=== PATIENT | male | born 1990 | race Caucasian/White ===

== ENCOUNTER 2024-10-02 22:14 | Day surgery (SDC) | payer OTHER, SELFPAY ==
[2024-10-02] VITALS (8 sets, daily range): BP systolic 107–141; BP diastolic 75–96; BMI 36.6; BMI 32.3
--- NOTE | 2024-10-02 15:30 | ED.GENMED ---
ED Provider Triage
<Rica Adam PA-C - Last Filed: 10/02/24 15:34>
-
Patient seen by provider in Triage?: Seen in Triage
Attestation: A medical screening examination has been initiated by a qualified medical provider. Based on the assessment performed at this time, it has been determined that an emergent medical condition may exist and the patient has been informed
that further medical evaluation and possible additional diagnostic testing may be needed.
HPI: 34yoM here with lower abd pain radiating to back x 2 hours. Started 30 minutes after drinking a milkshake. Feels worse than his typical Crohn's flare. Not currently on medications for his Crohn's. No fevers. No v/d. No prior abdominal surgeries.
GENERAL: Alert , in no apparent distress
EYE: No visual abnormalities.
NECK: Trachea midline
ENT: No visible abnormalities.
LUNGS: No acute respiratory distress
NEUROLOGICAL: Alert and oriented
SKIN: Skin intact. No visible changes.
MUSCULOSKELETAL: Moving extremities normally
PSYCH: Normal and appropriate interaction.
This is a medical evaluation conducted in person to initiate diagnostic evaluation and provide initial therapeutics. Please see further documentation by the treating clinician.
Abdominal labs, lactate, and CT abdomen ordered.
History of Present Illness
<Rica Adam PA-C - Last Filed: 10/02/24 15:34>
General
Chief Complaint: Abdominal Pain
Time Seen by Provider: 10/02/24 17:15
<Court Martini DO - Last Filed: 10/02/24 21:23>
History of Present Illness
History of Present Illness:
34-year-old male with history of Crohn's disease presenting for lower abdominal discomfort. Patient reports that earlier today he had a milkshake, and then started to have lower abdominal pain and nausea. Reports the pain is overall improved,
however the nausea is still present. He reports that his last Crohn's flare was about a year ago, is not currently on any medications for his Crohn's disease. Denies any changes in stool. Denies fever. He has not vomited. Denies any history of
abdominal surgeries. Denies additional acute medical complaints.
Phy Exam
<Court Martini DO - Last Filed: 10/02/24 21:23>
Physical Exam
Physical Exam:
General: Well-appearing, no clinical signs of dehydration, nontoxic and in no acute distress
HEENT: protecting airway
Neck: appears supple
CV: Normal heart rate, regular rhythm
Resp: No accessory muscle use
Abd: Soft and non-distended, no tenderness to palpation
Extremities: No deformities, no swelling, no erythema, pulses and sensation intact
Neuro: alert, no focal neurologic deficit
: deferred
Rectal: deferred
Psych: Normal affect
Skin: Intact
Course
<Rica Adam PA-C - Last Filed: 10/02/24 15:34>
Orders/Labs/Results
Orders:
Orders
10/02/24 15:33
CT Abd/pelvis W Iv Cont Urgent
Comment:
Reason For Exam: Lower abd pain, hx of Crohn's
10/02/24 15:39
Complete Blood Count/With Diff Urgent
Comprehensive Metabolic Panel Urgent
Lactic Acid Urgent
Lipase Urgent
10/02/24 17:36
Ondansetron Injectable [Zofran] 4 mg .ROUTE .[facility] ONE
10/02/24 17:42
Ondansetron Injectable [Zofran] 4 mg IV NOW STA
10/02/24 19:39
Abdominal Ltd US [US Abdomen Limited] Urgent
Comment:
Reason For Exam: abnormal CT, abdominal pain, elevated LFTs
Abnormal Lab Results
10/02/24
15:39
Absolute Neuts (auto) 6.8 H 10^3/uL
(1.4-6.5)
Absolute Monos (auto) 0.8 H 10^3/uL
(0.1-0.6)
Lymphocytes % 15.5 L %
(20.5-51.1)
Glucose 153 H mg/dl
(70-99)
Lactic Acid 2.2 H mmol/L
(0.7-2.0)
AST 126 H U/L
(17-59)
ALT 105 H U/L
(0-50)
Albumin 5.2 H g/dl
(3.5-5.0)
10/02/24 15:39
10/02/24 15:39
Vital Signs
Initial and Last Documented VS:
Initial Vital Signs
Temp Pulse Resp BP Pulse Ox
98.2 F 79 20 141/96 99
10/02/24 15:24 10/02/24 15:24 10/02/24 15:24 10/02/24 15:24 10/02/24 15:24
Last Documented Vital Signs
Temp Pulse Resp BP Pulse Ox
97.9 F 74 20 107/77 96
10/02/24 19:10 10/02/24 19:10 10/02/24 15:24 10/02/24 19:00 10/02/24 19:00
<Court Martini, - Last Filed: 10/02/24 21:23>
Orders/Labs/Results
Orders:
Orders
10/02/24 15:33
CT Abd/pelvis W Iv Cont Urgent
Comment:
Reason For Exam: Lower abd pain, hx of Crohn's
10/02/24 15:39
Complete Blood Count/With Diff Urgent
Comprehensive Metabolic Panel Urgent
Lactic Acid Urgent
Lipase Urgent
10/02/24 17:36
Ondansetron Injectable [Zofran] 4 mg .ROUTE .[facility]
10/02/24 17:42
Ondansetron Injectable [Zofran] 4 mg IV NOW STA
10/02/24 19:39
Abdominal Ltd US [US Abdomen Limited] Urgent
Comment:
Reason For Exam: abnormal CT, abdominal pain, elevated LFTs
Abnormal Lab Results
10/02/24
15:39
Absolute Neuts (auto) 6.8 H 10^3/uL
(1.4-6.5)
Absolute Monos (auto) 0.8 H 10^3/uL
(0.1-0.6)
Lymphocytes % 15.5 L %
(20.5-51.1)
Glucose 153 H mg/dl
(70-99)
Lactic Acid 2.2 H mmol/L
(0.7-2.0)
AST 126 H U/L
(17-59)
ALT 105 H U/L
(0-50)
Albumin 5.2 H g/dl
(3.5-5.0)
10/02/24 15:39
10/02/24 15:39
Vital Signs
Initial and Last Documented VS:
Initial Vital Signs
Temp Pulse Resp BP Pulse Ox
98.2 F 79 20 141/96 99
10/02/24 15:24 10/02/24 15:24 10/02/24 15:24 10/02/24 15:24 10/02/24 15:24
Last Documented Vital Signs
Temp Pulse Resp BP Pulse Ox
97.9 F 74 20 107/77 96
10/02/24 19:10 10/02/24 19:10 10/02/24 15:24 10/02/24 19:00 10/02/24 19:00
<Coutr Martini, DO - Last Filed: 10/02/24 21:23>
MDM/Problems Addressed
MDM/Problems Addressed:
34-year-old male with history of Crohn's disease presenting for lower abdominal discomfort after eating a milkshake. Vital signs normal.
On exam, patient is well-appearing, no acute distress or discomfort. Reports that his pain has currently improved. No palpable tenderness on exam. He notes that his main issue right now is nausea. Labs had been obtained prior to my assessment,
transaminitis. No focal right upper quadrant pain, normal T. bili. He reports history of fatty liver disease, lower suspicion for acute liver process. Plan for CT abdominal imaging to ensure no complicating Crohn's flare. Will administer Zofran
for patient's symptoms.
19:40 -CAT scan shows inflammation to the gallbladder suggesting potential for acute cholecystitis. Given transaminitis, will proceed further with right upper quadrant ultrasound imaging
21:20 -ultrasound again showing concern for acute cholecystitis. Discussed with surgery on-call, recommends admission, n.p.o., will evaluate for OR management tomorrow. No antibiotics at this time.
<Court Martini DO - Last Filed: 10/02/24 21:23>
*Critical Care Note
Total Time (30-74mins, 75-104mins- exclusive of procedures): Not Applicable
ED Attending Note
<Rica Adam PA-C - Last Filed: 10/02/24 15:34>
-
Portions of this chart may have been created with voice recognition software.� Occasional wrong word or��sound alike� substitutions may have occurred due to the inherent limitations of voice recognition software.
Discharge Plan
Departure
Referrals:
NONE,* [Family Provider] -
Interventions
Interventions:
*General Assessment Last Done: 10/02/24 15:24
*Neglect/Abuse Screening Last Done: 10/02/24 17:21
ED- Fall Risk Assessment Last Done: 10/02/24 17:21
*ED COVID-19 Vaccine History Last Done: 10/02/24 17:21
HX-Remyar-Qezxdlufvf Assessment Last Done: 10/02/24 19:10
Discharge Date and Time
Print Language: BULGARIAN
[2024-10-02 15:53] LABS: % Basophils 0.3 % (0-2); % Eosinophils 1.5 % (0-6); % Immature Granulocytes 0.2 % (0-0.5); % Lymphocytes 15.5 % (20.5-51.1); % Monocytes 8.8 % (1.7-9.3); % Neutrophils 73.7 % (42.2-75.2); Absolute Eosinophils 0.1 10^3/uL (0-0.7); Absolute Lymphocytes 1.4 10^3/uL (1.2-3.4); Absolute Monocytes 0.8 10^3/uL (0.1-0.6); Absolute Neutrophils 6.8 10^3/uL (1.4-6.5); Hemoglobin 15.8 g/dL (13.0-18.0); Mean Corp Hgb Conc. 35.1 g/dL (33.0-37.0); Mean Corpuscular Hgb 28.7 pg (27.0-31.0); Mean Corpuscular Volume 81.8 fL (80.0-94.0); Mean Platelet Volume 8.6 fL (7.4-10.4); Nucleated Red Blood Cells % 0 % (-); Platelet Count 269 10^3/uL (130-400); Red Cell Dist. Width 12.3 % (11.5-14.5); White Blood Cell Count 9.2 10^3/uL (4.8-10.8)
[2024-10-02 16:02] LABS: Lactic Acid 2.2 mmol/L (0.7-2.0)
[2024-10-02 16:10] LABS: ALT (SGPT) 105 U/L (0-50); AST (SGOT) 126 U/L (17-59); Albumin 5.2 g/dl (3.5-5.0); Alkaline Phosphatase 55 U/L (38-126); Blood Urea Nitrogen 17 mg/dl (9-20); Calcium 10.2 mg/dl (8.4-10.2); Carbon Dioxide 23 mmol/L (22-30); Chloride 101 mmol/L (98-107); Glucose 153 mg/dl (70-99); Potassium 3.9 mmol/L (3.5-5.1); Sodium 138 mmol/L (135-145); Total Bilirubin 0.8 mg/dl (0.2-1.3); Total Protein 7.6 g/dl (6.3-8.2); eGFR > 60.00
[2024-10-02 16:31] LABS: Lipase 65 U/L (23-300)
[2024-10-02] MEDS: ZOFRAN 4 MG IV ×2 (17:46→23:45)
--- NOTE | 2024-10-02 22:18 | HPS.HSE ---
Family Physician
-
Family Physician: * NONE
Chief Complaint
-
abd pain after drinking milkshake
History of Present Illness
34yoM past med hx of crohns ( in remission) and dermatitis (on rinvoq/opzelura) here with complaints of pain starting in lower abd pain radiating to back x 2 hours. Then with palpation pain was located in RUQ under rib cage. Pain started 30 minutes
after drinking a milkshake. Feels worse than his typical Crohn's flare. Not currently on medications for his Crohn's. No fevers. No v/d. No prior abdominal surgeries.
ct abd: IMPRESSION: Subtle stranding of the fat surrounding the gallbladder, with no evidence for calcified gallstones. This finding suggests the possibility of acute cholecystitis, and please correlate clinically. No evidence for biliary ductal
dilation.
The appendix appears normal. No evidence for bowel obstruction. No evidence for free intraperitoneal air.
US abd: IMPRESSION: Trace amount of sludge within the gallbladder lumen.
7 mm gallbladder polyp. No further imaging follow-up is advised, based on recommendations from the Society of radiologists in ultrasound.
The bladder wall is thickened with a trace amount of pericholecystic fluid. Findings on earlier CT raise concern for acute cholecystitis, and please correlate clinically. No evidence for biliary ductal dilation.
Fatty infiltration of the liver.
Medical History
Past Medical History
Past Medical History: Reports GERD (takes no meds routinely) and Other (crohns (remission), dermatitis)
Past Surgical History: Reports Orthopedic (ORIF left olecranon 2011)
Social History
Tobacco: Non-smoker
Alcohol: Occasional
Drug: None
Personal: Single
Living: Alone
Employment: Employed
Family History
Family History: Not pertinent
Allergies / Home Medications
Allergies reflects when Allergies were last updated in [facility].
Home Medications with original date entered in [facility]
Allergy/Medication List:
Allergies
Allergy/AdvReac Type Severity Reaction Status Date / Time
bees, pineapple, peanuts Allergy facial Uncoded 10/02/24 15:24
swelling
Home Medications
albuterol sulfate 90 mcg/actuation aerosol inhaler 2 puff inhalation R Q6HPRN PRN sob 10/02/24
ruxolitinib 1.5 % topical cream (Opzelura) 1 applic topical BIDPRN PRN breakout 10/02/24
upadacitinib 15 mg tablet,extended release 24 hr (Rinvoq) 15 mg PO DAILY 10/02/24
Review of Systems
-
History Source: Patient
A 12 point ROS was completed and negative except as noted: Yes
Constitutional: Reports No Symptoms
EENT: Reports No Symptoms
Respiratory: Reports No Symptoms
Cardiac: Reports No Symptoms
Abdomen/GI: Reports Abdominal Pain (pain 3/10) and Nausea
: Reports No Symptoms
Musculoskeletal: Reports No Symptoms
Skin: Reports No Symptoms
Neurological: Reports No Symptoms
Endocrine: Reports No Symptoms
Hematologic/Lymphatic: Reports No Symptoms
Physical Exam
Vital Signs
Vital Signs
Temp Pulse Resp BP Pulse Ox
97.9 F 63 14 118/86 97
10/02/24 19:10 10/02/24 21:37 10/02/24 21:37 10/02/24 21:37 10/02/24 21:37
Physical Exam
General: Well Developed, Well Nourished, No Apparent Distress, Comfortable and Conversant
HEENT: NormoCephalic and Moist mucous membranes
Respiratory: Clear
Cardiac: S1/S2 and Regular Rhythm
Breast: Deferred by me
GI: Soft, Normal Bowel Sounds and Tender (RUQ tender with palpation)
Rectal: Other
Genito-urinary: Deferred by me
Musculoskeletal: No Clubbing and No Cyanosis
Skin: Warm and Dry
Neuro: Awake, AO x 3, No Motor Deficits and Nonfocal/grossly intact
Hematologic/Lymphatic: No Lymphadenopathy
Psych: Calm
Laboratory Results
-
10/02/24 15:39
10/02/24 15:39
Laboratory Results
Lactic Acid 2.2 mmol/L (0.7-2.0) H 10/02/24 15:39
Total Bilirubin 0.8 mg/dl (0.2-1.3) 10/02/24 15:39
AST 126 U/L (17-59) H 10/02/24 15:39
ALT 105 U/L (0-50) H 10/02/24 15:39
Alkaline Phosphatase 55 U/L (38-126) 10/02/24 15:39
Lipase 65 U/L (23-300) 10/02/24 15:39
Data Reviewed
-
CT Scan: Discussed with Physician
Ultrasound: Discussed with Physician
Lab Data: Labs Reviewed by me
Impression/Plan
-
IMPRESSION:
acute cholecystitis
PLAN:
Admit to service of Dr Colon
med surg obs
#acute cholecystitis
-npo x meds, may have sips and ice chip until midnight
-IVF ivf @125
-pain control: dilaudid prn
-zofran prn
-observe off abx for now
-repeat cbc in cmp in am
-lactic 2.2 (afebrile, no wbc)
#transaminitis
-hx fatty liver
-no baseline labs avail
-recheck in am
#crohns
-in remission
-on no meds
#dermatitis
-Rinvoq daily- non formulary took dose today
-resume when able
DVT proph: scd
full code
[2024-10-02] MEDS: NSS 1000 IV (23:33)
[2024-10-03 07:05] VITALS: BP 124/74
[2024-10-03] MEDS: NSS 1000 IV ×3 (07:24→23:06)
[2024-10-03 07:33] LABS: ALT (SGPT) 185 U/L (0-50); AST (SGOT) 112 U/L (17-59); Albumin 4.4 g/dl (3.5-5.0); Alkaline Phosphatase 57 U/L (38-126); Blood Urea Nitrogen 16 mg/dl (9-20); Carbon Dioxide 28 mmol/L (22-30); Chloride 103 mmol/L (98-107); Estimated Creatinine Clearance > 125 ml/min; Glucose 95 mg/dl (70-99); Sodium 140 mmol/L (135-145); Total Bilirubin 1.3 mg/dl (0.2-1.3); Total Protein 6.8 g/dl (6.3-8.2); eGFR > 60.00
[2024-10-03 08:58] LABS: % Basophils 0.3 % (0-2); % Eosinophils 2.8 % (0-6); % Immature Granulocytes 0.1 % (0-0.5); % Monocytes 10.6 % (1.7-9.3); % Neutrophils 68.4 % (42.2-75.2); Absolute Eosinophils 0.2 10^3/uL (0-0.7); Absolute Lymphocytes 1.3 10^3/uL (1.2-3.4); Absolute Monocytes 0.8 10^3/uL (0.1-0.6); Absolute Neutrophils 4.8 10^3/uL (1.4-6.5); Hematocrit 45.1 % (39.0-52.0); Hemoglobin 15.5 g/dL (13.0-18.0); Mean Corp Hgb Conc. 34.6 g/dL (33.0-37.0); Mean Corpuscular Hgb 29.3 pg (27.0-31.0); Mean Corpuscular Volume 84.8 fL (80.0-94.0); Mean Platelet Volume 9.4 fL (7.4-10.4); Nucleated Red Blood Cells % 0 % (-); Platelet Count 233 10^3/uL (130-400); Red Blood Cell Count 5.25 10^6/uL (4.70-6.10); Red Cell Dist. Width 12.6 % (11.5-14.5); White Blood Cell Count 7.1 10^3/uL (4.8-10.8)
[2024-10-03] MEDS: ZOFRAN 4 MG IV ×2 (09:22→19:35)
[2024-10-03 10:49] LABS: Lactic Acid 0.8 mmol/L (0.7-2.0)
[2024-10-03] MEDS: ZOSYN 50 IV ×3 (11:13→21:14)
[2024-10-03 12:09] LABS: Direct Bilirubin 0.2 mg/dl (0.0-0.4)
--- NOTE | 2024-10-03 12:44 | CM ---
Addendum entered by Callum Landry 10/03/24 12:50:
Pt currently admitted in OBS.
OOBS form reviewed, pt given copy. Copy in chart
Original Note:
Pt seen bedside. Initial assessment completed
Pt lives w/ parents in a 2STH- no steps
Independent, denies DME for ambulation or functioning
Denies SNF/VN/PT
Address, point of contact and insurance verified
PCP: Pt stated his PCP retired and have to locate a new one
[facility]
Plan: Home; no needs anticipated
CM will cont following for d/c planning
[2024-10-03 15:05] VITALS: BP 116/67
[2024-10-03] MEDS: LOVENOX 40 MG SC (17:28)
[2024-10-03 23:13] VITALS: BP 116/64
[2024-10-04] VITALS (14 sets, daily range): BP systolic 114–155; BP diastolic 67–83
[2024-10-04] MEDS: ZOSYN 50 IV ×3 (05:02→21:56)
[2024-10-04] MEDS: TYLENOL 650 MG PO ×2 (05:16→20:08)
[2024-10-04 06:35] LABS: PT 14.5 Sec (11.4-14.6)
[2024-10-04 06:36] LABS: APTT 35.7 Sec (23.4-35.0)
--- NOTE | 2024-10-04 12:58 | W.IMMPOSTOP ---
Surgical Immed Post Op Note
-
Primary Surgeon: Orlin Aguilera MD
Assisting Surgeon: Lauren Pina NP, [employer]
Pre-op Diagnosis: Acute cholecystitis
Post-op Diagnosis: Acute cholecystitis
Procedure Performed: Laparoscopic cholecystectomy, lysis of adhesions
Anesthesia Type: General
Specimen / Cultures: Gallbladder
Estimated Blood Loss: 15 mL
Complications: None
Operative Findings: Gallbladder inflamed and edematous with omental attachments, taken down with blunt and sharp dissection; obtain the critical view of safety and placed 4 clips on the cystic duct stump and 2 clips on the cystic artery stump;
during dissection of the gallbladder fossa, encountered bile spillage; once gallbladder removed, copiously irrigated with 1.5 L of saline until the effluent was clear
Dispo�okay for low-fat diet; if tolerates, okay for DC in 4 to 6 hours with 4 days of Augmentin
--- NOTE | 2024-10-04 13:02 | OR.RPT ---
Operative Report
Operative Report
DATE OF OPERATION: 10/04/2024
SURGEON: Orlin Aguilera MD
PREOPERATIVE DIAGNOSIS: Acute cholecystitis
POSTOPERATIVE DIAGNOSIS: Acute cholecystitis
OPERATION: Laparoscopic cholecystectomy, lysis of adhesions
ASSISTANTS:
1. Lauren Pina NP, [facility]
ANESTHESIA: General
ESTIMATED BLOOD LOSS: 15 mL
FINDINGS:
1. Inflamed and edematous gallbladder with omental adhesions, taken down with blunt and sharp dissection
2. Obtain the critical view of safety and clipped the cystic duct and cystic artery
3. Encountered bile spillage during dissection off of the gallbladder fossa; copiously irrigated until effluent was clear
SPECIMENS:
1. Gallbladder
DRAINS: None
COMPLICATIONS: No immediate complications.
INDICATIONS: The patient is a 34-year-old male who presented with 1 day of right upper quadrant abdominal pain. WBC was 9.2. CT scan showed subtle fat stranding around the gallbladder. A right upper quadrant ultrasound showed gallbladder wall
thickening with trace pericholecystic fluid. On exam, he had significant RUQ abdominal pain associated with Hernandez sign, consistent with cholecystitis. Therefore, I recommended a cholecystectomy. The operation was discussed with the patient in
detail, including the risks, benefits and alternatives. Risks described included, but not limited to, bleeding, infection, damage to nearby structures (i.e., common bile duct, liver, bowel), conversion to open and anesthetic risks. The patient
understood and agreed to proceed. The consent was signed and placed in the chart.
PROCEDURE IN DETAIL: The patient was taken to the operating room and placed on the operating table in supine position. Sequential compression devices were placed bilaterally. General anesthesia was then induced and the patient was intubated without
complication. The patient was secured to the bed with 2 seatbelts and the arms were secured to the armboards. A footboard was placed in case steep reverse Trendelenburg positioning becomes necessary. Anesthesia placed an orogastric tube. Patient
recently received IV Zosyn. The abdomen was then shaved, prepped and draped in the usual sterile fashion. A time-out was then performed verifying the correct patient, procedure, operative site, positioning, and special equipment.
An 11 blade scalpel was used to create a stab incision at Babcock's point. The Veress needle was carefully inserted. After three clicks, insufflation was attached to the Veress needle and an opening pressure of less than 8 mmHg was noted. The
abdomen was insufflated to a pressure of 15 mmHg. The patient tolerated insufflation well. Next, the 11 blade scalpel was used to create a 5 mm incision along the midline about 15 cm from the target anatomy. Using the 5-0 camera and the Optiview
trocar, the first 5 mm port was placed under direct visualization ensuring no injury to adjacent organs. A 5-30 camera was then connected and inserted, and the abdomen was inspected. No injury from initial trocar placement or Veress needle
placement was noted. The gallbladder was noted to be dilated and inflamed. Additional trocars were then inserted under direct visualization in the following locations: a 12 mm trocar in the right epigastrium just lateral to the falciform ligament
and two 5 mm trocars along the right costal margin in the anterior axillary line and mid-axillary line. The table was placed in reverse Trendelenburg position with the right side up.
The dome of the gallbladder was grasped with a locking atraumatic grasper and retracted over the dome of the liver. Filmy adhesions were taken down bluntly and sharply between the omentum and the gallbladder. The infundibulum was also grasped with
an atraumatic grasper and retracted toward the right lower quadrant to expose the triangle of Calot. The peritoneum was then scored and incised with electrocautery along the medial and lateral margins of the gallbladder. Using a combination of
hook cautery and blunt dissection, the cystic duct and cystic artery were identified and circumferentially dissected. The critical view of safety was achieved. The cystic duct and the cystic artery were clipped and divided such that 4 clips
remained on the cystic duct stump and 2 clips remained on the cystic artery stump.
The gallbladder was then dissected from its peritoneal attachments to the gallbladder fossa by electrocautery. During the dissection, bile spillage from the gallbladder was encountered. This was quickly controlled with suction. Prior to complete
removal of the gallbladder, the gallbladder fossa was closely evaluated. No liver injuries were identified and hemostasis was assured using electrocautery. The gallbladder was then placed in an endoscopic retrieval bag through the epigastric port
and set to the side. The gallbladder fossa was then irrigated with saline and suctioned. There was no evidence of bleeding from the gallbladder fossa or cystic artery or leakage of bile from the cystic duct stump. Then, the specimen was removed
from the epigastric port. The gallbladder was passed off as specimen. The fascia of the epigastric port was closed with an 0 Vicryl simple interrupted stitch using laparoscopic visualization and a suture passer. The remaining ports were removed
under direct vision and no bleeding was noted from the trocar sites. The laparoscope was withdrawn and the umbilical trocar removed. The abdomen was allowed to collapse. The port sites were injected with 30mL of 0.25% Marcaine with epinephrine
mixed with 0.3mg of dexamethasone for local anesthesia. The skin was closed with subcuticular sutures of 4-0 Monocryl and Dermabond.
At this point, the procedure was complete. All needle, sponge and instrument counts were correct. The patient tolerated the procedure well. The patient was extubated without complication and was transferred to the recovery room in stable condition.
Of note, Lauren Pina, certified physician assistant, was necessary during this procedure for traction, countertraction, and exploratory purposes. I was present for the entire duration of the case.
DICTATED BY: Orlin Aguilera MD
[2024-10-04] MEDS: ZOSYN IV (13:08)
[2024-10-04] MEDS: TORADOL 15 MG IV (13:11)
[2024-10-04] MEDS: ZOFRAN 4 MG IV (13:20)
[2024-10-04] MEDS: DILAUDID 0.5 MG IV ×2 (13:29→16:04)
--- NOTE | 2024-10-04 14:43 | PTCARENOTE ---
pt back from OR s/p Lap Yuko. Pt c/o 02/27 pain. pt on reg diet. Family at the bedside updated plan of care ongoing.
[2024-10-04] MEDS: LOVENOX 40 MG SC (17:20)
[2024-10-04] MEDS: FLUSH (NSS) 1 FLUSH IV (21:58)
[2024-10-04] MEDS: DILAUDID 0.25 MG IV (23:32)
[2024-10-05 03:06] VITALS: BP 115/72
[2024-10-05] MEDS: ZOSYN 50 IV ×2 (04:17→09:21)
[2024-10-05] MEDS: TYLENOL 650 MG PO (04:21)
[2024-10-05 07:59] VITALS: BP 136/86
--- NOTE | 2024-10-05 10:32 | CM ---
MD entered order for discharge.
Pt changed to PSR .
Spoke with pts mom Bill she will drive him home today.
Pt requested no other needs
PLAN Home no needs
--- NOTE | 2024-10-05 10:47 | W.PN.CRS1 ---
Addendum entered and electronically signed by Orlin Aguilera MD 10/05/24 11:12:
Will need 4 days of Augmentin postop for bile spillage
Original Note:
Today's Communication / Plan
-
as below
Assessment/Plan
-
34-year-old male with PMH of Crohn's and unknown dermatitis (states he is on Rinvoq and opzelura for the dermatitis; last colonoscopy was a few years ago and states it was normal, follows with Dr. Pierce with GI in [place]), who presents with 1
day of right upper quadrant abdominal pain that started shortly after taking in a milkshake; he denies any N/V or chest pain/SOB; denies any diarrhea; WBC 9.2, Hb 15.8, creatinine 0.9, total bili 0.8, AST 126, ALT 105, lactate 2.2, CT�subtle fat
stranding around the gallbladder, right upper quadrant ultrasound�trace sludge, 7 mm polyp, gallbladder wall thickening with trace pericholecystic fluid, normal CBD
POD 1 lap clarisse
AFVSS
No labs today
� Continue low-fat diet
� Slight elevation in total bilirubin, normal direct bili; likely acute phase reactant; mild elevation LFTs, common with cholecystitis
� Pain control with Tylenol, oxycodone, Dilaudid as needed
� DVT PPx with Lovenox
� OOB/IS
Dispo�okay for discharge with follow-up in 2 to 4 weeks; will likely repeat CMP as an outpatient to trend the LFTs
Subjective Data
Subjective Data
Date of Service: October 05, 2024
No overnight events.
Pain controlled.
Denies nausea/vomiting. Tolerating diet.
+flatus -BMs +voiding
Pt is OOB.
Objective Data
-
Vital Signs
Temp Pulse Resp BP Pulse Ox
98.1 F 80 18 136/86 98
10/05/24 07:59 12/16/24 07:59 10/05/24 07:59 10/05/24 07:59 10/05/24 09:10
Intake & Output
10/04/24 10/05/24 10/06/24
06:59 06:59 06:59
Intake Total 50 / 50 1205 / 1205
Balance 50 / 50 1205 / 1205
Intake:
Oral fluids 480 / 480
IV fluids (Total) 50 / 50 525 / 525
Normosol 150 / 150
IV piggybacks 200 / 200
Other:
Number of approximated MODERATE 2
amounts of urine
Lab Results
10/03/24 06:00
10/03/24 06:00
Physical Exam
-
General: No Acute Distress and AOx3
Abdomen: Soft, Non Distended, Tender (Appropriately tender near incisions), No Guarding, No Rebound and Other (Incisions well-approximated without erythema or drainage; covered in Dermabond)
Skin: Warm and Dry
Wound: No Signs of Infection
--- NOTE | 2024-10-05 11:01 | W.DS.TRANS ---
DC Summary - Nursing Program Director
-
Discharge Instructions:
Discharge Diagnosis/Procedures Acute cholecystitis status post laparoscopic
cholecystectomy
Diet Regular
Additional Diets If you have loose stools in the 4-6 weeks after
your surgery, switch to a low fat diet
Activity No strenuous activity
Additional Activity Do not lift over 10lbs (gallon of milk) for the
next 2-3 weeks
Driving Restrictions No driving for 24 hours
Bathing Restrictions OK to Shower
Wound Care Ok to shower and wash your incisions gently with
soap and water. Avoid scrubbing or picking off
the glue.
Instructions:
Stand-Alone Forms:
Changes to Home Medications: Yes
Discharge Medications:
DC Medications w/original date entered in [facility]
albuterol sulfate 90 mcg/actuation aerosol inhaler 2 puff inhalation R Q6HPRN PRN sob 10/02/24
ruxolitinib 1.5 % topical cream (Opzelura) 1 applic topical BIDPRN PRN breakout 10/02/24
upadacitinib 15 mg tablet,extended release 24 hr (Rinvoq) 15 mg PO DAILY 10/02/24
acetaminophen 325 mg tablet 650 mg (2 x 325 mg) PO Q4HPRN PRN mild pain #1 tab 10/04/24
amoxicillin 875 mg-potassium clavulanate 125 mg tablet 1 tab PO Q12 antibiotic #8 tabs 10/04/24
ibuprofen 200 mg tablet 400 - 600 mg (2 - 3 x 200 mg) PO Q6HPRN PRN moderate pain #1 tab 10/04/24
oxycodone 5 mg tablet 5 mg PO Q4HPRN PRN breakthrough/severe pain #10 tabs 10/04/24
Home Medication Changes
acetaminophen 325 mg tablet 650 mg (2 x 325 mg) PO Q4HPRN PRN mild pain #1 tab 10/04/24
amoxicillin 875 mg-potassium clavulanate 125 mg tablet 1 tab PO Q12 antibiotic #8 tabs 10/04/24
ibuprofen 200 mg tablet 400 - 600 mg (2 - 3 x 200 mg) PO Q6HPRN PRN moderate pain #1 tab 10/04/24
oxycodone 5 mg tablet 5 mg PO Q4HPRN PRN breakthrough/severe pain #10 tabs 10/04/24
Pending Results: Yes
Additional Pending Results:
OR pathology
[2024-10-05 11:22] VITALS: BP 133/83
== END 2024-10-05 11:35 | disposition home or self-care (01) ==
LOC: SDS 22:14
PROVIDERS: Emergency Medicine; Nurse Practitioner Family; Registered Nurse; ATTENDING PHYSICIAN Surgery; EMERGENCY PHYSICIAN Student in an Organized Health Care Education/Training Program
DX: K81.2 Acute cholecystitis with chronic cholecystitis (principal); K66.0 Peritoneal adhesions (postprocedural) (postinfection)
CPT/HCPCS: 47562; 88304; 74177; 76705; 80053; 82248; 83605; 83690; 85025; 85610; 85730; 86850; 86900; 86901; 96374; 99285; Q9967